=== PATIENT | female | born 1980 | race Caucasian/White ===

== ENCOUNTER 2021-09-10 06:08 | Inpatient (IN) | payer OTHER ==
[2021-09-10] VITALS (38 sets, daily range): BP systolic 93–140; BP diastolic 57–78
[~2021-09-10 06:08] MED LIST: FERR240T9 PO; IBP600T1 PO; PREN-93 PO
--- NOTE | 2021-09-10 06:36 | History & Physical-OB ---
OB - Chief Complaint & HPI Date/Time Date of Admission: Date of Admission: Sep 10, 2021 at 06:08 Date seen by a Provider: Sep 10, 2021 Time Seen by a Provider: 06:35 Chief Complaint/History OB-Reason for Admission/Chief: Induction of Labor Hx : 4 Hx Para: 3 Expected Date of Delivery: Sep 05, 2021 Gestational Age in Weeks: 40 Indication for induction: post dates Admission Nurse Assessment Rev: Yes History of Labs GBS negative Allergies and Home Medications Allergies Coded Allergies: No Known Drug Allergies (Unverified , 12/22/14) Patient Home Medication List Home Medication List Reviewed: Yes Ferrous Gluconate (Iron) 1 Tab Tablet, 1 TAB PO DAILY Prescribed by: ATIYA ALLAN on 12/22/142022 Ibuprofen (Motrin Tablet) 600 Mg Tab, 600 MG PO Q6H PRN for CRAMPS Prescribed by: OC MITCHELL on 12/23/14920 Vit/Fe Fumarate/Fa ( Multivitamins Tablet) 1 Each Tablet, 1 EACH PO DAILY Prescribed by: ATIYA ALLAN on 12/22/142021 OB - History Hx of Present Care: Yes Ultrasounds: Normal mid trimester US Obstetrical Complications: None Medical Complications: None Obstetrical History Hx Termination: No Hx Multiple Gestation: No Hx Stillbirth: No Hx Complication: No Hx Induced Hypertens: No Hx Maternal Gestational Diabet: Yes Delivery History Hx Dystocia: No Hx Large For Gestational Age I: No Hx Small for Gestational Age I: No Hx Section: No Hx Vaginal Delivery Post C-Sec: No Hx Blood Disorders: Yes (anemia) Adverse Rxn to Tranfusion: No Patient Past Medical History no chronic medical problems Immunizations Hepatitis A: Yes Hepatitis B: Yes Tetanus Booster (TDap): Unknown Date of Influenza Vaccine: Aug 29, 2014 OB - Admission Exam Physical Exam HEENT: Moist Membranes Heart: Rhythm Normal Lungs: Clear Cervical Dilatation: 1cm Effacement: 50% Membranes: Intact Heart Rate: 130's Accelerations: Accelerations Present OB - Assessment/Plan/Diagnosis Assessment Assessment: induction of labor Admission Dx 1. IUP at 40 weeks. Admission Status: Inpatient Order (span 2 midnights) Reason for Inpatient Admission: induction of labor Plan Plan: Induction Induction Method: MAGNO RANGEL MD Sep 10, 2021 06:36
[2021-09-10] MEDS ORDERED: D5 LR IV SOLUTION 1,000 ML IV ONE (06:53)
[2021-09-10 06:58] LABS: BASOPHILS % (AUTO) 0 % (0-10); EOSINOPHILS # (AUTO) 0.1 10^3/uL (0.0-0.3); EOSINOPHILS % (AUTO) 1 % (0-10); HEMATOCRIT 40 % (35-52); HEMOGLOBIN 13.4 g/dL (11.5-16.0); LYMPHOCYTES # (AUTO) 1.3 10^3/uL (1.0-4.0); LYMPHOCYTES % (AUTO) 20 % (12-44); MEAN CORPUSCULAR HEMOGLOBIN 29 pg (25-34); MEAN CORPUSCULAR HGB CONC 33 g/dL (32-36); MEAN CORPUSCULAR VOLUME 87 fL (80-99); MEAN PLATELET VOLUME 11.3 fL (9.0-12.2); MONOCYTES # (AUTO) 0.5 10^3/uL (0.0-1.0); MONOCYTES % (AUTO) 7 % (0-12); NEUTROPHILS # (AUTO) 4.4 10^3/uL (1.8-7.8); NEUTROPHILS % (AUTO) 70 % (42-75); PLATELET COUNT 191 10^3/uL (130-400); WHITE BLOOD COUNT 6.3 10^3/uL (4.3-11.0)
[2021-09-10] MEDS ORDERED: OXYTOCIN PRE-MIX DRIP 500 ML IV SCH ×2 (07:00→14:45)
[2021-09-10] MEDS ORDERED: D5 LR IV SOLUTION 1,000 ML IV SCH (07:00)
[2021-09-10 07:43] LABS: BILIRUBIN,URINE NEGATIVE (NEGATIVE); CLARITY,URINE CLEAR; COLOR,URINE YELLOW; GLUCOSE, URINE (UA) NEGATIVE (NEGATIVE); KETONES,URINE NEGATIVE (NEGATIVE); LEUKOCYTE ESTERASE ,URINE NEGATIVE (NEGATIVE); NITRITE,URINE NEGATIVE (NEGATIVE); PROTEIN,URINE NEGATIVE (NEGATIVE)
[2021-09-10 07:49] LABS: BACTERIA,URINE NEGATIVE /HPF
[2021-09-10] MEDS ORDERED: fentaNYL 2 mcg/ml BUPIVA 0.125 100 ML ONE (09:54)
[2021-09-10] MEDS ORDERED: BUPIVACAINE 0.25% 30 ML (SENSORCAINE) VIAL ONE (10:14)
[2021-09-10] MEDS ORDERED: fentaNYL INJ 250 MCG/5 ML AMP ONE (10:14)
[2021-09-10] MEDS ORDERED: fentaNYL 2 mcg/ml BUPIVA 0.125 100 ML IV SCH (10:15)
[2021-09-10] MEDS ORDERED: LACTATED RINGERS 1,000 ML IV ONE (10:15)
[2021-09-10] MEDS ORDERED: CATHETER FLUSH 10 ML SYR IV PRN (10:15)
[2021-09-10] MEDS ORDERED: ONDANSETRON 4 MG/2 ML (SDV) Z0FRAN IV PRN (10:15)
[2021-09-10] MEDS ORDERED: diphenhydrAMINE 50 MG/ML INJ (BENADRYL) IV PRN (10:15)
[2021-09-10] MEDS ORDERED: NALOXONE 0.4 MG/ML 1 ML (NARCAN) VIAL IV PRN ×2 (10:15→14:45)
[2021-09-10] MEDS ORDERED: CATHETER FLUSH 10 ML SYR IV SCH ×2 (14:00→22:00)
--- NOTE | 2021-09-10 14:37 | OB Labor & Delivery Record ---
L&D History Date of Service Date of Service: Sep 10, 2021 History Expected Date of Delivery: Sep 05, 2021 Gestational Age in Weeks: 40 Hx : 4 Hx Para: 3 Complications Events: Routine care Operative Indications (Cesarea: N/A-Vaginal Delivery Intrapartal Events: None L&D Stage1 Stage One Onset of Labor - Date: Sep 10, 2021 Onset of Labor - Time: 06:47 Monitors and Tracing Monitor Mode: Internal Heart Rate: 145 Monitor Accelerations: Uniform Monitor Decelerations: None Station: -3 International Account Executive Variability: Average (6-10) Short Term Variability: Present Presentation: Vertex Vital Signs VS - Last 72 Hours, by Label 09/10/21 09/10/21 09/10/21 06:33 06:33 08:36 Temp 36.8 36.8 36.4 Pulse 104 104 84 Resp B/P (MAP) 126/76 (93) 113/74 (87) Pulse Ox 99 99 O2 Delivery Room Air Room Air Room Air Signs of Distress by FHT Signs of Distress no Rupture of Membranes Amniotic Membrane Rupture Time: 0647 Amniotic Membrane Fluid Desc.: Clear Induction/Anesthesia Epidural Cath Placement - Time: 1034 L&D Stage2 Stage Two Stage II Date: Sep 10, 2021 Stage II Time: 13:11 Monitors and Tracing Monitor Mode: Internal Heart Rate: 145 Monitor Accelerations: Uniform Monitor Decelerations: Early International Account Executive Variability: Average (6-10) Short Term Variability: Present Position: Left Occiput Anterior Presentation: Vertex Signs of Distress by FHT Signs of Distress no Cord Descript/Complications Cord Vessel Description: 3 Vessels Delivery Type Infant Delivery Method: Spontaneous Vaginal Episiotomy/Perineal Laceration Laceraction(s)/Extensions: No Episiotomy Description: Perineal Extension/lac (minor) Sutures Used: Vicryl Condition of Delivery 1 minute Comment: 8 5 minute Comment: 9 Condition of Infant Condition of : Living Exam: No Observed Abnormalities Resuscitation Resuscitation: N/A - Spontaneous Resp L&D Stage3 Stage Three Stage III Date: Sep 10, 2021 Stage III Time: 13:17 Pictocin Pitocin Administration mu/min: 6 Pitocin ml/hr: 6 Pitocin Administration Comment: 0915 PITOCIN INCREASED PER PROTOCOL. Placenta Delivery Placenta Delivery: Spontaneous Delivery Summary Summary Estimated blood loss (mL): 350 Condition of Delivery Examined: Cervix Examined Post Hemorrhage: No Intervention Required uterine massage MAGNO SORIANO MD Sep 10, 2021 14:37
[2021-09-10] MEDS ORDERED: WITCH HAZEL(TUCKS) 40 EA JAR TOP PRN (14:45)
[2021-09-10] MEDS ORDERED: MEASLES,MUMPS,RUBELLA 1 EA INJ SQ ONE (14:45)
[2021-09-10] MEDS ORDERED: BENZOCAINE/MENTHOL (DERMOPLAST) 56 ML CAN TP PRN (14:45)
[2021-09-10] MEDS ORDERED: TETANUS,DIPTH,PERTUSS P/F (BOOSTRIX) 0.5 ML VIAL IM ONE (14:45)
[2021-09-10] MEDS: ACETAMINOPHEN 500 MG TAB (TYLENOL) PO SCH (17:35)
[2021-09-10] MEDS: IBUPROFEN 600 MG (MOTRIN) TAB PO SCH ×2 (17:35→22:58)
[2021-09-10] MEDS: DOCUSATE SODIUM 100 MG (COLACE) CAP PO SCH (22:58)
[2021-09-11 05:27] VITALS: BP 103/62
[2021-09-11] MEDS: IBUPROFEN 600 MG (MOTRIN) TAB PO SCH ×2 (05:28→12:21)
[2021-09-11 06:07] LABS: BASOPHILS % (AUTO) 0 % (0-10); EOSINOPHILS # (AUTO) 0.1 10^3/uL (0.0-0.3); EOSINOPHILS % (AUTO) 0 % (0-10); HEMATOCRIT 30 % (35-52); HEMOGLOBIN 9.9 g/dL (11.5-16.0); LYMPHOCYTES # (AUTO) 1.3 10^3/uL (1.0-4.0); LYMPHOCYTES % (AUTO) 10 % (12-44); MEAN CORPUSCULAR HEMOGLOBIN 29 pg (25-34); MEAN CORPUSCULAR HGB CONC 33 g/dL (32-36); MEAN CORPUSCULAR VOLUME 87 fL (80-99); MEAN PLATELET VOLUME 11.5 fL (9.0-12.2); MONOCYTES % (AUTO) 8 % (0-12); NEUTROPHILS % (AUTO) 81 % (42-75); PLATELET COUNT 164 10^3/uL (130-400); WHITE BLOOD COUNT 13.6 10^3/uL (4.3-11.0)
--- NOTE | 2021-09-11 07:46 | Discharge Summary ---
Diagnosis/Chief Complaint Date of Admission Sep 10, 2021 at 06:08 Date of Discharge September 11, 2021 Admission Diagnosis Admission Diagnosis 1. Intrauterine at 40 weeks gestation Discharge Diagnosis 1. Intrauterine at 40 weeks gestation Chief Complaint/HPI Chief Complaint/HPI 41-year-old 4 now term 4 who was admitted for induction of labor during the morning of September 10, 2021. At that time she was noted to be 40 weeks 5 days gestation. Her GBS status was negative. care was obtained through [facility] and essentially unremarkable. Discharge Summary-OBS Procedures 1. Epidural per anesthesia 2. Spontaneous vaginal delivery 3. Repair of minor first-degree perineal laceration Discharge Physical Examination Allergies: Coded Allergies: No Known Drug Allergies (Unverified , 12/22/14) Vitals & I&Os Intake and Output 09/11/21 00:00 Intake Total 1500 ml Balance 1500 ml Vital Sign - Last 12Hours Date Time Temp Pulse Resp B/P (MAP) Pulse Ox O2 Delivery O2 Flow Rate FiO2 09/11/21 05:27 36.6 87 18 103/62 (76) 97 Room Air General Appearance: Cooperative, No Acute Distress Respiratory: Clear to Auscultation Cardiovascular: Regular Rate Abdominal: Soft (with uterus firm) Hospital Course Was the Problem List Reviewed?: Yes patient was admitted in the morning of September 10, 2021 and underwent amniotomy. Fluid was noted to be clear at that time. She received epidural for pain control and labor. Ultimately she required Pitocin augmentation and went on to completion. She delivered a term viable male during the early afternoon of September 10, 2021. She had a very minor perineal laceration. She labor and delivery note for full details. Following delivery she underwent routine care orders. She had no complications during the remainder of hospital stay. She did complain slightly in the morning of September 11 back pain at site of epidural. There was no headache. Patient had hemoglobin in the morning of September 11 of 9.9 compared to admission of 13.4. She had 350 cc of blood loss at and this is accountable. She was without dizziness and felt ready for dismissal in the afternoon of September 11, 2021. Labs Laboratory Tests 09/11/21 05:45: White Blood Count 13.6H, Red Blood Count 3.42L, Hemoglobin 9.9#L, Hematocrit 30L , Mean Corpuscular Volume 87, Mean Corpuscular Hemoglobin 29, Mean Corpuscular Hemoglobin Concent 33, Red Cell Distribution Width 17.0H, Platelet Count 164, Mean Platelet Volume 11.5, Immature Granulocyte % (Auto) 1, Neutrophils (%) (Auto) 81H, Lymphocytes (%) (Auto) 10L, Monocytes (%) (Auto) 8, Eosinophils (%) (Auto) 0, Basophils (%) (Auto) 0, Neutrophils # (Auto) 11.0H, Lymphocytes # (Auto) 1.3, Monocytes # (Auto) 1.0, Eosinophils # (Auto) 0.1, Basophils # (Auto) 0.0, Immature Granulocyte # (Auto) 0.1 Discharge Instructions to patient/family Please see electronic discharge instructions given to patient. Discharge Medications Reviewed and agree with Discharge Medication list on patient's Discharge Instruction sheet MAGNO SORIANO MD Sep 11, 2021 07:46
--- NOTE | 2021-09-11 07:48 | Discharge Inst-Women's Service ---
Discharge Inst-Women's Serv Depart Medication/Instructions New, Converted or Re-Newed RX: Other Instructions May take 600 mg ibuprofen every 6 hours as needed for uterine cramps or for back pain Problems Reviewed?: Yes Consults/Follow Up Additional Follow Up: Yes (Dr. Soriano in 6 weeks at [facility]) Activity Activity: Activity as Tolerated Driving Instructions: No Driving for 1 Week Nothing Inside Vagina: No [place] (for 6 weeks) Diet Discharge Diet: Regular Diet Return to The Hospital For: as below Symptoms to Report to : Swelling Increased, Pain Increased, Fever Over 101 Degrees F, Vaginal Discharge Foul For Any Problems or Questions: Contact Your Physician MAGNO SORIANO MD Sep 11, 2021 07:48
[2021-09-11] MEDS: ACETAMINOPHEN 500 MG TAB (TYLENOL) PO SCH (08:54)
[2021-09-11 09:00] VITALS: BP 104/92
[2021-09-11] MEDS ORDERED: FLU QUADRIvalent (3YOA+) 60 mcg/0.5 ml 2021-22(AFLURIA) IM ONE (09:15)
[2021-09-11] MEDS: DOCUSATE SODIUM 100 MG (COLACE) CAP PO SCH (12:20)
[2021-09-11 12:25] VITALS: BP 109/61
--- NOTE | 2021-09-11 14:05 | Anesthesia-Regional Post-Op ---
Regional Patient Condition Mental Status: Alert, Oriented x3 Circulation: Same as Pre-Op Headache: Absent Sensation: Full Recovery Motor Block: Absent Post Op Complications Complications None Follow Up Care/Instructions Patient Instructions None needed. Anesthesia/Patient Condition Patient is doing well, does C/O a sore back which is not unexpected and I relayed this to her, stable vital signs, no apparent adverse anesthesia problems. I told her and her to call with any questions or concerns. LI LUO DO Sep 11, 2021 14:05
== END 2021-09-11 16:15 | disposition home or self-care (01) | DRG 807 ==
LOC: LDRP 06:08
PROVIDERS: ADMIT Family Medicine; ATTEND Family Medicine
PROC: 10E0XZZ Delivery of Products of Conception, External Approach (ICD-10-PCS; principal; 2021-09-10)
PROC: 0W8NXZZ Division of Female Perineum, External Approach (ICD-10-PCS; 2021-09-10)
PROC: 10907ZC Drainage of Amniotic Fluid, Therapeutic from Products of Conception, Via Natural or Artificial Opening (ICD-10-PCS; 2021-09-10)
PROC: 0HQ9XZZ Repair Perineum Skin, External Approach (ICD-10-PCS; 2021-09-10)
DX: O48.0 Post-term pregnancy (principal); Z37.0 Single live birth; Z3A.40 40 weeks gestation of pregnancy; O70.0 First degree perineal laceration during delivery
CPT/HCPCS: 36415; 81000; 85025; 86850; 86900; 86901